=== PATIENT | male | born 1975 | race Caucasian/White ===

== ENCOUNTER 2017-02-03 12:16 | Emergency (ER) | payer OTHER ==
--- NOTE | 2017-02-03 13:12 | ER NURSING DOCUMENTATION ---
Nurse's Notes [facility] Name:Man Steven Age:41 yrs Sex:Male :1975 Arrival Date:02/03/2017 Time:12:16 Bed1 Private MD: Diagnosis:Fever Presentation: 02/03 12:21 Acuity: TONA 3 mk2 12:27 Presenting complaint: Patient states: I've had about two days of a high temperature and mk2 body aches and chills." Pt took excedrin prior to arrival. Denies sob, pain, vomiting, diarrhea or complaints otherwise. Transition of care: Home. Care prior to arrival: Medication(s) given: Excedrin. 12:27 Method Of Arrival: Walk In 2 Triage Assessment: 12:31 General: Appears in no apparent distress, Behavior is cooperative. Pain: Denies pain. mk2 Neuro: No deficits noted. Cardiovascular: Heart tones S1 S2. Respiratory: Denies shortness of breath. Derm: No deficits noted. Skin is dry, Skin is normal. Historical: - Allergies: No known drug Allergies; No known drug Allergies; - Home Meds: 1. None - PMHx: None; - PSHx: None; - Tetanus: < 10 years. - Ebola Screening: : Patient denies exposure to infectious person. Patient denies travel to an Ebola-affected area in the 21 days before illness onset. Patient positive for the following Ebola Virus Disease associated symptoms: Fever greater than or equal to 101.5 degrees Fahrenheit, muscle pain. - Immunization history: Flu Vaccine None. - Social history: Smoking status: Patient states was never smoker of tobacco. Patient uses alcohol occasionally. Screenin:32 Infectious Disease Risk None. Abuse screen: Denies threats or abuse. Nutritional mk2 screening: No deficits noted. Assessment: 12:32 See Triage Assessment done by same RN. mk2 13:10 Respiratory: Respiratory effort is even, unlabored. mk2 Vital Signs: 12:31 BP 135 / 82; Pulse 102; Resp 16; Temp 98.6(O); Pulse Ox 91% on R/A; Weight 108.86 kg; mk2 Height 5 ft. 8 in. (172.72 cm); Pain 4/10; 13:09 BP 132 / 64; Pulse 100; Resp 15; Pulse Ox 94% on R/A; Pain 3/10; mk2 12:31 Body Mass Index 36.49 (108.86 kg, 172.72 cm) mk2 13:09 PT states he is already feeling better and not having hot and cold flashes 2 ED Course: 12:17 Patient arrived in ED. lm3 12:21 Shanti Mensah, RN is Primary Nurse. mk2 12:21 Triage completed. mk2 12:32 Arm band placed on Bed in low position Call Light in Reach Gowned HOB Elevated Side 2 rails up x1. 12:40 Flu Swab done. mk2 12:53 Clifton Wise MD is Attending Physician. id 12:56 Resting quietly. mk2 13:10 Valuables Remains with patient. mk2 Administered Medications: No medications were administered Outcome: 12:59 Discharge ordered by . id 13:09 Discharged to home ambulatory. 2 13:09 Condition: stable 13:09 Discharge instructions given to patient, Instructed on discharge instructions, follow up and referral plans. medication usage. 13:10 Patient left the ED. 2 02/05 12:03 Discharge F/U Call: Unable to reach: no answer st Signatures: Yudith Smith, RN RN Clifton Kaplan MD MD sc Kruger, Meg, RN RN 2 Karolyn Monge lm3
--- NOTE | 2017-02-03 13:12 | ER PHYSICIAN DOCUMENTATION ---
Physician Documentation [facility] Name:Man Steven Age:41 yrs Sex:Male :1975 Arrival Date:02/03/2017 Time:12:16 Bed1 Private MD: Clifton Craig Disposition: 02/03/17 12:59 Discharged to Home/Self Care. Impression: Fever. - Condition is Good. - Discharge Instructions: FEBRILE ILLNESS, Uncertain Cause (Adult), FEVER CONTROL (Adult). - Medical Reconciliation form form. - Follow up: Emergency Department; When: As needed; Reason: Worsening of condition. - Problem is new. - Symptoms have improved. HPI: 02/03 12:59 This 41 yrs old Male presents to ER via Walk In with complaints of Fever. sc 12:59 The patient reports fever, that was measured at 102 degrees Fahrenheit. Onset: The sc symptom(s)/episode began/occurred 2 day(s) ago. Modifying factors: Denies contact with similarly ill indivduals. Denies recent travel. Associated signs and symptoms: Pertinent positives: myalgias. Severity of symptoms: At their worst the symptoms were mild. Historical: - Allergies: No known drug Allergies; No known drug Allergies; - Home Meds: 1. None - PMHx: None; - PSHx: None; - Tetanus: < 10 years. - Ebola Screening: : Patient denies exposure to infectious person. Patient denies travel to an Ebola-affected area in the 21 days before illness onset. Patient positive for the following Ebola Virus Disease associated symptoms: Fever greater than or equal to 101.5 degrees Fahrenheit, muscle pain. - Immunization history: Flu Vaccine None. - Social history: Smoking status: Patient states was never smoker of tobacco. Patient uses alcohol occasionally. ROS: 13:00 Eyes: Negative for injury, pain, redness, and discharge. sc ENT: Negative for injury, pain, and discharge. Neck: Negative for injury, pain, and swelling. Cardiovascular: Negative for chest pain, palpitations, and edema. Respiratory: Negative for shortness of breath, cough, wheezing, and pleuritic chest pain. Abdomen/GI: Negative for abdominal pain, nausea, vomiting, diarrhea, and constipation. Back: Negative for injury and pain. MS/Extremity: Negative for injury and deformity. Skin: Negative for injury, rash, and discoloration. 13:00 Neuro: Negative for headache, weakness, numbness, tingling, and seizure. sc 13:00 Constitutional: Positive for body aches, fever. Exam: Constitutional: This is a well developed, well nourished patient who is awake, alert, and in no acute distress. Head/Face: Normocephalic, atraumatic. Eyes: Pupils equal round and reactive to light, extra-ocular motions intact. Lids and lashes normal. Conjunctiva and sclera are non-icteric and not injected. Cornea within normal limits. Periorbital areas with no swelling, redness, or edema. ENT: Nares patent. No nasal discharge, no septal abnormalities noted. Tympanic membranes are normal and external auditory canals are clear. Oropharynx with no redness, swelling, or masses, exudates, or evidence of obstruction, uvula midline. Mucous membranes moist. Neck: Trachea midline, no thyromegaly or masses palpated, and no cervical lymphadenopathy. Supple, full range of motion without nuchal rigidity, or vertebral point tenderness. No meningismus. Chest/axilla: Normal chest wall appearance and motion. Nontender with no deformity. No lesions are appreciated. Cardiovascular: Regular rate and rhythm with a normal S1 and S2. No gallops, murmurs, or rubs. Normal PMI, no JVD. No pulse deficits. Respiratory: Lungs have equal breath sounds bilaterally, clear to auscultation and percussion. No rales, rhonchi or wheezes noted. No increased work of breathing, no retractions or nasal flaring. Abdomen/GI: Soft, non-tender, with normal bowel sounds. No distension or tympany. No guarding or rebound. No evidence of tenderness throughout. Back: No spinal tenderness. No costovertebral tenderness. Full range of motion. Skin: Warm, dry with normal turgor. Normal color with no rashes, no lesions, and no evidence of cellulitis. MS/ Extremity: Pulses equal, no cyanosis. Neurovascular intact. Full, normal range of motion, negative Homans's, calves equal bilaterally. 13:00 Neuro: Awake and alert, GCS 15, oriented to person, place, time, and situation. ny Cranial nerves II-XII grossly intact. Motor strength 5/5 in all extremities. Sensory grossly intact. Cerebellar exam normal. Normal gait. Vital Signs: 12:31 BP 135 / 82; Pulse 102; Resp 16; Temp 98.6(O); Pulse Ox 91% on R/A; Weight 108.86 kg; mk2 Height 5 ft. 8 in. (172.72 cm); Pain 4/10; 13:09 BP 132 / 64; Pulse 100; Resp 15; Pulse Ox 94% on R/A; Pain 3/10; mk2 12:31 Body Mass Index 36.49 (108.86 kg, 172.72 cm) mk2 13:09 PT states he is already feeling better and not having hot and cold flashes mk2 MDM: 12:53 Patient medically screened. ny 13:01 Differential diagnosis: viral Infection, URI, gastroenteritis. Data reviewed: vital sc signs, nurses notes, and as a result, I will discharge patient. Counseling: I had a detailed discussion with the patient and/or guardian regarding: the historical points, exam findings, and any diagnostic results supporting the discharge/admit diagnosis, the need for outpatient follow up, to return to the emergency department if symptoms worsen or persist or if there are any questions or concerns that arise at home. 02/03 12:47 Order name: INFLUENZA A/B; Complete Time: 13:03 EDMS 02/03 13:03 Interpretation: Normal. sc Dispensed Medications: No medications were administered Signatures: Clifton Wise MD MD sc Kruger, Meg, RN RN mk2
== END 2017-02-03 13:11 | disposition home or self-care (01) ==
LOC: ER 12:16
DX: R50.9 Fever, unspecified (principal); M79.1 Myalgia
CPT/HCPCS: 87449; 99281